=== PATIENT | female | born 1970 | race African-American/Black ===

== ENCOUNTER 2016-10-27 20:22 | Emergency (ER) | payer BC ==
[2016-10-27] MEDS ORDERED: NS 0.9% 1000 ML* 1,000 ML IV ONE (20:48)
[2016-10-27 21:06] LABS: Hematocrit 38 % (35-47); Hemoglobin 12.4 g/dl (12.0-16.0); Mean Corpuscular HGB Conc 32 g/dl (31-36); Mean Corpuscular Hemoglobin 26 pg (27-31); Mean Corpuscular Volume 79 fL (80-97); Mean Platelet Volume 9 um3 (7.4-10.4); Red Blood Count 4.83 10^6/ul (4.0-5.4); Red Cell Distribution Width 14 % (10.5-15); White Blood Count 11.5 10^3/ul (3.5-10.8)
[2016-10-27 21:22] LABS: Albumin 3.9 g/dL (3.2-5.2); BUN/Creatinine Ratio 21.9 (8-20); C Reactive Protein 56.66 mg/L (< 5.00); Calcium 9.9 mg/dL (8.6-10.3); EGFR African American 129.6 (>60); EGFR Non-African American 100.8 (>60); Globulin 3.5 g/dL (2-4); Potassium 3.6 mmol/L (3.5-5.0); Total Bilirubin 0.4 mg/dL (0.2-1.0); Total Protein 7.4 g/dL (6.4-8.9)
--- NOTE | 2016-10-27 21:47 | ED ---
Thea William Anna, scribed for Narayan Hall MD on 10/27/16 at 2054 . Abdominal Pain/Female - HPI Summary HPI Summary: Patient is a 46 y/o female coming to [facility] presenting with the gradual onset of waxing and waning abdominal pain that began yesterday afternoon. She describes the pain as a cramping sensation of severity 1/10 that is exacerbated by certain actions, including coughing, sneezing, bending over, and sitting down. She denies fever, chills, nausea, vomiting, changes in urination. She reports that she has not felt pain similar to this before. Her history is significant for a hysterectomy. She last saw her PCP 2 yearsago. - History of Current Complaint Chief Complaint: EDAbdPain Stated Complaint: ABD PAIN Time Seen by Provider: 10/27/16 20:42 Hx Obtained From: Patient Hx Last Menstrual Period: 04/21/13 Onset/Duration: Gradual Onset, Lasting Days, Still Present Severity Initially: Moderate Severity Currently: Moderate Pain Intensity: 1 Pain Scale Used: 0-10 Numeric Aggravating Factor(s): Movement Associated Signs and Symptoms: Negative: Fever, Urinary Symptoms, Nausea, Vomiting Allergies/Adverse Reactions: Allergies Allergy/AdvReac Type Severity Reaction Status Date / Time No Known Allergies Allergy Verified 10/27/16 20:38 PMH/Surg Hx/FS Hx/Imm Hx Endocrine/Hematology History: Reports: Hx Anemia - R/T MENORRHAGIA; largely resolved since hysterectomy Denies: Hx Diabetes, Hx Thyroid Disease Cardiovascular History: Reports: Other Cardiovascular Problems/Disorders - HX OF OCCASIONAL HYPOTENSION AND DIZZINESS Denies: Hx Hypertension Respiratory History: Denies: Hx Asthma, Hx Chronic Obstructive Pulmonary Disease (COPD) GI History: Denies: Hx Ulcer History: Reports: Other Problems/Disorders - FREQ UTI'S, MENORRHAGIA, UTERINE FIBROID Musculoskeletal History: Reports: Hx Tendonitis - KNEES Sensory History: Reports: Hx Contacts or Glasses - GLASSES Denies: Hx Hearing Aid Opthamlomology History: Reports: Hx Contacts or Glasses - GLASSES - Cancer History Hx Chemotherapy: No Hx Radiation Therapy: No - Surgical History Surgery Procedure, Year, and Place: 1991 LEFT BREAST BIOPSY- [place]. 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 2010 LEFT BREAST [place]OMY[place] [place] Hx Anesthesia Reactions: No Infectious Disease History: No Infectious Disease History: Denies: Hx Clostridium Difficile, Hx Hepatitis, Hx Human Immunodeficiency Virus (HIV), Hx of Known/Suspected MRSA, Hx Shingles, History Other Infectious Disease, Traveled Outside the [place] in Last 30 Days - Family History Known Family History: Positive: Hypertension - Hx grandmother - Social History Alcohol Use: Weekly Alcohol Amount: 6 DRINKS/WEEK (BEER, WINE, COCKTAILS) Substance Use Type: Reports: None Smoking Status (MU): Former Smoker Type: Cigarettes Amount Used/How Often: SOCIAL SMOKER 1-2 CIGARETTES/WEEK Length of Time of Smoking/Using Tobacco: 8yrs Have You Smoked in the Last Year: Yes Review of Systems Negative: Fever, Chills Positive: Abdominal Pain. Negative: Vomiting, Nausea Negative: dysuria All Other Systems Reviewed And Are Negative: Yes Physical Exam Triage Information Reviewed: Yes Vital Signs On Initial Exam: Initial Vitals Temp Pulse Resp BP Pulse Ox 97.5 F 76 16 109/66 98 10/27/16 20:30 10/27/16 20:30 10/27/16 20:30 10/27/16 20:30 10/27/16 20:30 Vital Signs Reviewed: Yes Appearance: Positive: Well-Appearing, Pain Distress - mild discomfort Skin: Positive: Warm Head/Face: Positive: Normal Head/Face Inspection ENT: Positive: Hearing grossly normal Neck: Positive: Supple, Nontender Respiratory/Lung Sounds: Positive: Breath Sounds Present Cardiovascular: Positive: RRR Abdomen Description: Positive: Nontender, No Organomegaly, Soft Bowel Sounds: Positive: Present Musculoskeletal: Positive: Strength/ROM Intact Neurological: Positive: Alert, Oriented to Person Place, Time Psychiatric: Positive: Affect/Mood Appropriate Diagnostics - Vital Signs Vital Signs Temp Pulse Resp BP Pulse Ox 10/27/16 20:30 97.5 F 76 16 109/66 98 - Laboratory Lab Results: Lab Results 10/27/16 10/27/16 10/27/16 Range/Units 20:54 20:54 20:54 WBC 11.5 H (3.5-10.8) 10^3/ul RBC 4.83 (4.0-5.4) 10^6/ul Hgb 12.4 (12.0-16.0) g/dl Hct 38 (35-47) % MCV 79 L (80-97) fL MCH 26 L (27-31) pg MCHC 32 (31-36) g/dl RDW 14 (10.5-15) % Plt Count 276 (150-450) 10^3/ul MPV 9 (7.4-10.4) um3 Neut % (Auto) 75.8 (38-83) % Lymph % (Auto) 16.0 L (25-47) % Grundy % (Auto) 6.0 (1-9) % Eos % (Auto) 1.3 (0-6) % Baso % (Auto) 0.9 (0-2) % Absolute Neuts (auto) 8.7 H (1.5-7.7) 10^3/ul Absolute Lymphs (auto) 1.8 (1.0-4.8) 10^3/ul Absolute Monos (auto) 0.7 (0-0.8) 10^3/ul Absolute Eos (auto) 0.1 (0-0.6) 10^3/ul Absolute Basos (auto) 0.1 (0-0.2) 10^3/ul Absolute Nucleated RBC 0.01 10^3/ul Nucleated RBC % 0.1 Sodium 134 (133-145) mmol/L Potassium 3.6 (3.5-5.0) mmol/L Chloride 105 (101-111) mmol/L Carbon Dioxide 24 (22-32) mmol/L Anion Gap 5 (2-11) mmol/L BUN 14 (6-24) mg/dL Creatinine 0.64 (0.51-0.95) mg/dL Est GFR ( Amer) 129.6 (>60) Est GFR (Non-Af Amer) 100.8 (>60) BUN/Creatinine Ratio 21.9 H (8-20) Glucose 117 H (70-100) mg/dL Lactic Acid 0.5 (0.5-2.0) mmol/L Calcium 9.9 (8.6-10.3) mg/dL Total Bilirubin 0.40 (0.2-1.0) mg/dL AST 76 H (13-39) U/L ALT 26 (7-52) U/L Alkaline Phosphatase 50 (34-104) U/L C-Reactive Protein 56.66 H (< 5.00) mg/L Total Protein 7.4 (6.4-8.9) g/dL Albumin 3.9 (3.2-5.2) g/dL Globulin 3.5 (2-4) g/dL Albumin/Globulin Ratio 1.1 (1-3) Lipase 31 (11.0-82.0) U/L Result Diagrams: 10/27/16 20:54 10/27/16 20:54 Lab Statement: Any lab studies that have been ordered have been reviewed, and results considered in the medical decision making process. Re-Evaluation - Re-Evaluation First Eval Change: Improved Abdominal Pain Fem Course/Dx - Course Course Of Treatment: Patient is a 46 y/o female coming to [facility] presenting with the gradual onset of waxing and waning abdominal pain that began yesterday afternoon. She describes the pain as a cramping sensation of severity 1/10 that is exacerbated by certain actions, including coughing, sneezing, bending over, and sitting down. She denies fever, chills, nausea, vomiting, changes in urination. She reports that she has not felt pain similar to this before. Her history is significant for a hysterectomy. She last saw her PCP 2 years ago. Patient was given fluids in the ED course. Labs reveal WBC of 11.5, BUN/ Creatinine ratio of 21.9, glucose of 117, AST of 76, and C-Reactive protein of 56.66. UA reveals 1+ for blood, trace ketones, and present squamous epithelial cells. Patient will be discharged with follow up from primary care physician. Patient is agreeable with plan. - Diagnoses Provider Diagnoses: Abdominal pain Discharge - Discharge Plan Condition: Stable Disposition: HOME Patient Education Materials: Abdominal Pain (ED) Referrals: Piyush Melton MD [Primary Care Provider] - Additional Instructions: Follow up with your primary care physician within 48 hours. Return to the Emergency Department for new or worsening symptoms. The documentation as recorded by the Thea shirley Anna accurately reflects the service I personally performed and the decisions made by me, Narayan Hall MD.
[2016-10-27 22:41] LABS: Urine Bacteria Absent (Absent); Urine Bilirubin Negative (Negative); Urine Glucose Negative (Negative); Urine Nitrite Negative (Negative)
[2016-10-27 23:05] VITALS: BP 101/66
== END 2016-10-27 23:04 | disposition home or self-care (01) ==
LOC: ED 20:22
DX: R10.9 Unspecified abdominal pain (principal); Z87.891 Personal history of nicotine dependence
CPT/HCPCS: 36415; 80053; 81003; 81015; 83605; 83690; 85025; 86140; 96360; 99283

== ENCOUNTER 2017-05-13 09:00 | Emergency (ER) | payer BC ==
[2017-05-13 09:03] VITALS: BP 110/60
[2017-05-13] MEDS ORDERED: Fluorescein Sodium TOPICAL* 1 MG TEST OPHTHALMIC ONE (10:02)
[2017-05-13] MEDS ORDERED: Fluorescein Sodium TOPICAL* 1 MG TEST ONE (10:03)
--- NOTE | 2017-05-13 10:03 | ED ---
Throat Pain/Nasal Congestion - HPI Summary HPI Summary: 47 female presents to ED with complaints of right eye pain and feeling as though there is something in it that began during the middle of the night. Patient states she remembers waking up from rubbing at her right eye and due to pain. Patient states since waking up she has had right eye pain that worsens at times. Admits to some light sensitivity. Denies drainage other than tears. Denies any known trauma, FB or anything getting into her eye. No changes in vision or loss of vision. No medications, no PMHx. - History of Current Complaint Chief Complaint: EDEyeProblem Time Seen by Provider: 05/13/17 09:17 Hx Obtained From: Patient Onset/Duration: Sudden Onset, Lasting Hours, Still Present Severity: Moderate Associated Signs And Symptoms: Positive: FB Sensation Cough: None - Allergies/Home Medications Allergies/Adverse Reactions: Allergies Allergy/AdvReac Type Severity Reaction Status Date / Time No Known Allergies Allergy Verified 05/13/17 09:03 PMH/Surg Hx/FS Hx/Imm Hx Endocrine/Hematology History: Reports: Hx Anemia - R/T MENORRHAGIA; largely resolved since hysterectomy Denies: Hx Diabetes, Hx Thyroid Disease Cardiovascular History: Reports: Other Cardiovascular Problems/Disorders - HX OF OCCASIONAL HYPOTENSION AND DIZZINESS Denies: Hx Hypertension Respiratory History: Denies: Hx Asthma, Hx Chronic Obstructive Pulmonary Disease (COPD) GI History: Denies: Hx Ulcer History: Reports: Other Problems/Disorders - FREQ UTI'S, MENORRHAGIA, UTERINE FIBROID Musculoskeletal History: Reports: Hx Tendonitis - KNEES Sensory History: Reports: Hx Contacts or Glasses - GLASSES Denies: Hx Hearing Aid Opthamlomology History: Reports: Hx Contacts or Glasses - GLASSES- infrequent use of contacts - Cancer History Hx Chemotherapy: No Hx Radiation Therapy: No - Surgical History Surgery Procedure, Year, and Place: 1991 LEFT BREAST BIOPSY- [place]. 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AST [place] [place] Hx Anesthesia Reactions: No - Immunization History Immunizations Up to Date: Yes Infectious Disease History: No Infectious Disease History: Denies: Hx Clostridium Difficile, Hx Hepatitis, Hx Human Immunodeficiency Virus (HIV), Hx of Known/Suspected MRSA, Hx Shingles, History Other Infectious Disease, Traveled Outside the [place] in Last 30 Days - Family History Known Family History: Positive: Hypertension - Hx grandmother - Social History Alcohol Use: Weekly Alcohol Amount: 6 DRINKS/WEEK (BEER, WINE, COCKTAILS) Substance Use Type: Reports: None Smoking Status (MU): Former Smoker Type: Cigarettes Amount Used/How Often: SOCIAL SMOKER 1-2 CIGARETTES/WEEK Length of Time of Smoking/Using Tobacco: 8yrs Have You Smoked in the Last Year: Yes Review of Systems Constitutional: Negative Positive: Photophobia, Erythema, Other - pain, FB sensation Cardiovascular: Negative Respiratory: Negative Musculoskeletal: Negative Neurological: Negative All Other Systems Reviewed And Are Negative: Yes Physical Exam Triage Information Reviewed: Yes Vital Signs On Initial Exam: Initial Vitals Temp Pulse Resp BP Pulse Ox 98.0 F 80 14 110/60 99 05/13/17 09:01 05/13/17 09:01 05/13/17 09:01 05/13/17 09:01 05/13/17 09:01 Vital Signs Reviewed: Yes Appearance: Positive: Well-Appearing, No Pain Distress, Well-Nourished Skin: Positive: Warm, Skin Color Reflects Adequate Perfusion, Dry. Negative: Cold, Cyanosis @, Pale, Erythema @ Head/Face: Positive: Normal Head/Face Inspection Eyes: Positive: EOMI, TOSHIA, Conjunctiva Inflammed - erythematous from irritation , Other: - no FB noted, normal exam on exam. Fluoroscein stain completed right eye, corneal abrasion noted. linear and without complication. no FB. normal visual acuity, photosensitivty. Negative: Discharge - tears ENT: Positive: Normal ENT inspection, Hearing grossly normal, Pharynx normal, TMs normal Neck: Positive: Supple, Nontender, No Lymphadenopathy Respiratory/Lung Sounds: Positive: Clear to Auscultation, Breath Sounds Present. Negative: Rales, Rhonchi, Wheezes Cardiovascular: Positive: Normal, RRR, Pulses are Symmetrical in both Upper and Lower Extremities. Negative: Murmur, Rub Musculoskeletal: Positive: Normal, Strength/ROM Intact Neurological: Positive: Normal, Sensory/Motor Intact, Alert, Oriented to Person Place, Time - [employer] Coma Scale Coma Scale Total: 15 Procedures - Eye Procedure Alcaine Drops Administered: Yes - corneal abrasion noted on stain inferior corena over iris ,linear right eye Diagnostics - Vital Signs Vital Signs Temp Pulse Resp BP Pulse Ox 05/13/17 09:01 98.0 F 80 14 110/60 99 - Laboratory Lab Statement: Any lab studies that have been ordered have been reviewed, and results considered in the medical decision making process. EENT Course/Dx - Course Course Of Treatment: fluoroscein stain preformed right eye, corneal abrasion noted right eye. patient tolerated procedure well without complication. will treat prophylactically with antibiotic drops, rest, do not touch eye, wear sunglasses. follow up. aware of worsening signs and symptoms. not concerned of any other emergent eye etiology at this time. - Differential Diagnoses Differential Diagnoses: Abrasion, Conjunctivitis, Foreign Body - Diagnoses Provider Diagnoses: Corneal abrasion Discharge - Discharge Plan Condition: Improved Disposition: HOME Prescriptions: Ciprofloxacin 0.3% OPTH.JIM* [Cipro 0.3% Opth*] 2 drop RIGHT EYE Q4H #1 btl Patient Education Materials: Corneal Abrasion (ED) Referrals: Piyush Melton MD [Primary Care Provider] - Gerard Yarbrough MD [Medical Doctor] - Additional Instructions: Use prescribed eye drops as directed to prevent infection. Instill 1 to 2 drops into the right eye every 2 hours while awake for 2 days and 1 to 2 drops every 4 hours while awake for the next 5 days. Do not touch eyes. Wear sunglasses and avoid bright lights. Rest and do not use if painful. Cool compresses. If symptoms persist past 2-3 days, worsen, or new symptoms develop please seek medical attention promptly. Follow up with PCP or broadcast maintenance technician for recheck or new/worse symptoms.
== END 2017-05-13 10:29 | disposition home or self-care (01) ==
LOC: ED 09:00
DX: S05.01XA Injury of conjunctiva and corneal abrasion without foreign body, right eye, initial encounter (principal); F17.210 Nicotine dependence, cigarettes, uncomplicated; X58.XXXA Exposure to other specified factors, initial encounter; Y92.9 Unspecified place or not applicable
CPT/HCPCS: A9270-GY

== ENCOUNTER 2018-09-01 20:42 | Emergency (ER) | payer BC ==
[2018-09-01] MEDS ORDERED: NS 0.9% 1000 ML** 2,000 ML IV ONE (22:31)
[2018-09-01 22:49] LABS: ABS Basophils 0 10^3/ul (0-0.2); ABS Eosinophils 0 10^3/ul (0-0.6); ABS Lymphocytes 0.8 10^3/ul (1.0-4.8); ABS Monocytes 0.5 10^3/ul (0-0.8); ABS Nucleated RBC 0 10^3/ul; Eosinophil % 0.3 %; Hematocrit 41 % (35-47); Hemoglobin 13.3 g/dl (12.0-16.0); Lymphocyte % 11.2 %; Mean Corpuscular HGB Conc 32 g/dl (31-36); Mean Corpuscular Hemoglobin 26 pg (27-31); Mean Corpuscular Volume 80 fL (80-97); Mean Platelet Volume 8.6 fL (7.4-10.4); Nucleated Red Blood Cells % 0; Platelet Count 222 10^3/ul (150-450); Red Blood Count 5.12 10^6/ul (4.00-5.40); Red Cell Distribution Width 14 % (10.5-15); White Blood Count 7.4 10^3/ul (3.5-10.8)
[2018-09-01 23:05] LABS: Albumin 4.1 g/dL (3.2-5.2); Albumin/Globulin Ratio 1.5 (1-3); BUN/Creatinine Ratio 17.5 (8-20); C Reactive Protein 43.75 mg/L (<8.01); Calcium 9.1 mg/dL (8.6-10.3); EGFR African American 93.4 (>60); EGFR Non-African American 77.2 (>60); Globulin 2.7 g/dL (2-4); Potassium 3.5 mmol/L (3.5-5.0); Total Bilirubin 0.5 mg/dL (0.2-1.0); Total Protein 6.8 g/dL (6.4-8.9)
--- NOTE | 2018-09-01 23:27 | ED ---
GI/ HPI - HPI Summary HPI Summary: 48-year-old female presents with diarrhea for past 5 hours. States that it got so bad she was unable to control the diarrhea. She states she was on antibiotics 3 weeks ago for uti (marcobid). She denies any nausea or vomiting. She is not able to keep anything in her. States feels dehydrated. She denies any cough. No fevers. she denies any urinary symptoms. She denies any blood in the stool. States the stools as watery. No one else is sick. Has no medical conditions. No chest pain or shortness breath. - History of Current Complaint Chief Complaint: EDAbdPain Time Seen by Provider: 09/01/18 22:29 Stated Complaint: UNCONTROLLABLE DIHARREA Hx Last Menstrual Period: 04/21/13 Pain Intensity: 25 - Allergy/Home Medications Allergies/Adverse Reactions: Allergies Allergy/AdvReac Type Severity Reaction Status Date / Time No Known Allergies Allergy Verified 09/01/18 22:18 Home Medications: Home Medications NK [No Home Medications Reported] 09/01/18 [History Confirmed 09/01/18] PMH/Surg Hx/FS Hx/Imm Hx Endocrine/Hematology History: Reports: Hx Anemia - R/T MENORRHAGIA; largely resolved since hysterectomy Denies: Hx Diabetes, Hx Thyroid Disease Cardiovascular History: Reports: Other Cardiovascular Problems/Disorders - HX OF OCCASIONAL HYPOTENSION AND DIZZINESS Denies: Hx Hypertension Respiratory History: Denies: Hx Asthma, Hx Chronic Obstructive Pulmonary Disease (COPD) GI History: Denies: Hx Ulcer History: Reports: Other Problems/Disorders - FREQ UTI'S, MENORRHAGIA, UTERINE FIBROID Musculoskeletal History: Reports: Hx Tendonitis - KNEES Sensory History: Reports: Hx Contacts or Glasses - GLASSES- infrequent use of contacts Denies: Hx Hearing Aid Opthamlomology History: Reports: Hx Contacts or Glasses - GLASSES- infrequent use of contacts - Cancer History Hx Chemotherapy: No Hx Radiation Therapy: No - Surgical History Surgery Procedure, Year, and Place: 1991 LEFT BREAST BIOPSY- [place]. 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 2010 LEFT BREAST L[place]PECTOMY[place] [place] Hx Anesthesia Reactions: No - Immunization History Date of Tetanus Vaccine: unk Date of Influenza Vaccine: none Infectious Disease History: No Infectious Disease History: Denies: Hx Clostridium Difficile, Hx Hepatitis, Hx Human Immunodeficiency Virus (HIV), Hx of Known/Suspected MRSA, Hx Shingles, History Other Infectious Disease, Traveled Outside the [place] in Last 30 Days - Family History Known Family History: Positive: Hypertension - Hx grandmother - Social History Alcohol Use: Weekly Alcohol Amount: 2 drinks per week Substance Use Type: Reports: None Smoking Status (MU): Former Smoker Type: Cigarettes Amount Used/How Often: SOCIAL SMOKER 1-2 CIGARETTES/WEEK Length of Time of Smoking/Using Tobacco: 8yrs Have You Smoked in the Last Year: Yes Review of Systems Negative: Fever Negative: Chest Pain Negative: Shortness Of Breath Positive: Abdominal Pain, Vomiting, Diarrhea, Nausea All Other Systems Reviewed And Are Negative: Yes Physical Exam Triage Information Reviewed: Yes Vital Signs On Initial Exam: Initial Vitals Temp Pulse Resp BP Pulse Ox 97.7 F 122 18 123/74 96 09/01/18 20:42 09/01/18 20:42 09/01/18 20:42 09/01/18 20:42 09/01/18 20:42 Vital Signs Reviewed: Yes Appearance: Positive: Well-Appearing Skin: Positive: Warm, Dry Head/Face: Positive: Normal Head/Face Inspection Eyes: Positive: Normal, Conjunctiva Clear ENT: Positive: Pharynx normal Respiratory/Lung Sounds: Positive: Clear to Auscultation, Breath Sounds Present Cardiovascular: Positive: Normal, RRR Abdomen Description: Positive: Nontender, Soft Bowel Sounds: Positive: Present Musculoskeletal: Positive: Normal Neurological: Positive: Normal Psychiatric: Positive: Normal Diagnostics - Vital Signs Vital Signs Temp Pulse Resp BP Pulse Ox 09/01/18 20:42 97.7 F 122 18 123/74 96 - Laboratory Lab Results: Lab Results 09/01/18 09/01/18 09/01/18 Range/Units 22:40 22:40 22:40 WBC 7.4 (3.5-10.8) 10^3/ul RBC 5.12 (4.00-5.40) 10^6/ul Hgb 13.3 (12.0-16.0) g/dl Hct 41 (35-47) % MCV 80 (80-97) fL MCH 26 L (27-31) pg MCHC 32 (31-36) g/dl RDW 14 (10.5-15) % Plt Count 222 (150-450) 10^3/ul MPV 8.6 (7.4-10.4) fL Neut % (Auto) 81.1 % Lymph % (Auto) 11.2 % Mathews % (Auto) 7.1 % Eos % (Auto) 0.3 % Baso % (Auto) 0.3 % Absolute Neuts (auto) 6.0 (1.5-7.7) 10^3/ul Absolute Lymphs (auto) 0.8 L (1.0-4.8) 10^3/ul Absolute Monos (auto) 0.5 (0-0.8) 10^3/ul Absolute Eos (auto) 0 (0-0.6) 10^3/ul Absolute Basos (auto) 0 (0-0.2) 10^3/ul Absolute Nucleated RBC 0 10^3/ul Nucleated RBC % 0 Sodium 134 L (135-145) mmol/L Potassium 3.5 (3.5-5.0) mmol/L Chloride 105 (101-111) mmol/L Carbon Dioxide 23 (22-32) mmol/L Anion Gap 6 (2-11) mmol/L BUN 14 (6-24) mg/dL Creatinine 0.80 (0.51-0.95) mg/dL Est GFR ( Amer) 93.4 (>60) Est GFR (Non-Af Amer) 77.2 (>60) BUN/Creatinine Ratio 17.5 (8-20) Glucose 103 H (70-100) mg/dL Lactic Acid 0.8 (0.5-2.0) mmol/L Calcium 9.1 (8.6-10.3) mg/dL Total Bilirubin 0.50 (0.2-1.0) mg/dL AST 31 (13-39) U/L ALT 21 (7-52) U/L Alkaline Phosphatase 37 (34-104) U/L C-Reactive Protein 43.75 H (<8.01) mg/L Total Protein 6.8 (6.4-8.9) g/dL Albumin 4.1 (3.2-5.2) g/dL Globulin 2.7 (2-4) g/dL Albumin/Globulin Ratio 1.5 (1-3) Lipase 10 L (11.0-82.0) U/L Result Diagrams: 09/01/18 22:40 09/01/18 22:40 Lab Statement: Any lab studies that have been ordered have been reviewed, and results considered in the medical decision making process. Re-Evaluation - Re-Evaluation First Eval Re-Evaluation Time: 00:43 Change: Improved Comment: feeling better, unable to give stool culture at this time GIGU Course/Dx - Course Course Of Treatment: 48-year-old female presents with diarrhea for past 5 hours. States that it got so bad she was unable to control the diarrhea. She states she was on antibiotics 3 weeks ago for uti (marcobid). She denies any nausea or vomiting. She is not able to keep anything in her. States feels dehydrated. She denies any cough. No fevers. she denies any urinary symptoms. She denies any blood in the stool. States the stools as watery. No one else is sick. Has no medical conditions. No chest pain or shortness breath. On exam has a nontender abdomen. wbc, normal. CRP elevated. Gave fluids and feeling better. patient was present in ED for 5 hours and unable to give stool sample. will discharge to have follow up with primary given stool kit and told to call primary for order if has diarrhea. patient understand and agrees with plan. - Diagnoses Differential Diagnoses - Female: Gastroenteritis (Viral), Gastroenteritis ( Bacterial), Other - c diff Provider Diagnoses: Diarrhea Discharge - Sign-Out/Discharge Documenting (check all that apply): Patient Departure Patient Received Moderate/Deep Sedation with Procedure: No - Discharge Plan Condition: Good Disposition: HOME Patient Education Materials: Acute Diarrhea (ED) Referrals: Piyush Melton MD [Primary Care Provider] - Additional Instructions: drink plenty of fluids Follow up with primary Return to ED if develop any new or worsening symptoms - Billing Disposition and Condition Condition: GOOD Disposition: Home
[2018-09-02 02:30] VITALS: BP 104/63
== END 2018-09-02 02:32 | disposition home or self-care (01) ==
LOC: ED 20:42
DX: R19.7 Diarrhea, unspecified (principal); Z72.0 Tobacco use
CPT/HCPCS: 36415; 80053; 83605; 83690; 85025; 86140; 96360; 96361; 99282